=== PATIENT | male | born 1995 | race Two or more races ===

== ENCOUNTER 2022-04-21 20:03 | Emergency (ER) | payer OTHER ==
--- NOTE | 2022-04-21 21:32 | ED Physician Documentation ---
History of Present Illness - Stated complaint Stated Complaint: RASH - Chief complaint Chief Complaint: Allergic Rx - Additonal information Additional information: 26-year-old male presents emergency department for evaluation of a pruritic er ythematous rash that began on his right bicep but now includes portions of his left arm. He described it initially as very itchy and he thought it was dry so he applied Vaseline ointment. That did resolve the itchiness but the rash is spread to the left arm and today to the left face. He has no fevers. No history of similar. Uses vegan body wash. Review of Systems Constitutional: denies: Fever, Chills Nose: reports: Reviewed and negative Cardiac: reports: Reviewed and negative Respiratory: reports: Reviewed and negative GI: reports: Reviewed and negative Skin: reports: Rash PD PAST MEDICAL HISTORY - Present Medications Home Medications: Ambulatory Orders Medication Instructions Recorded Confirmed Triamcinolone 0.1% Oint [Kenalog 1 applic TOP BID #15 gm 04/21/22 0.1% Oint] - Allergies Allergies/Adverse Reactions: Allergies Allergy/AdvReac Type Severity Reaction Status Date / Time No Known Drug Allergies Allergy Verified 04/21/22 20:11 PD ED PE EXPANDED - General General: Alert, No acute distress - Cardiac Cardiac: Regular Rate. No: Murmur Present - Respiratory Respiratory: Clear to ausultation ben. No: Distress, Labored - Derm Derm: Rash (Dry scaling erythematous macular patchy rash on the right bicep, left forearm and left upper arm. Nonvesicular. No rash on palms of hands, soles of feet. No oral mucosal lesions) Results - Vitals Vitals: Vital Signs - 24 hr 04/21/22 20:06 Temperature 36.8 C Heart Rate 82 Respiratory 16 Rate Blood Pressure 119/74 O2 Saturation 98 Oxygen O2 Source Room air PD MEDICAL DECISION MAKING - ED course Complexity details: considered differential, d/w patient ED course: 26-year-old male presents emergency department for evaluation of a dry scaling pruritic macular rash on both his arms with some mild extension to his face. The rash is most consistent with an eczema. He did have some improvement using a Vaseline ointment but it has persisted despite use of this therefore we will start him on triamcinolone. This is not consistent with a cellulitis or a viral etiology Advised follow-up with [facility]. Emergent return precautions discussed Departure - Departure Disposition: Home, Self Care Clinical Impression: Eczema Qualifiers: Eczema type: unspecified Qualified Code(s): L30.9 - Dermatitis, unspecified Condition: Stable Record reviewed to determine appropriate education?: Yes Instructions: ED Dermatitis Atopic Eczema Prescriptions: Triamcinolone 0.1% Oint [Kenalog 0.1% Oint] 1 applic TOP BID #15 gm Comments: Shun I am not certain what the rashes on your arms though it is most consistent with an early eczema. Please use hypoallergenic soaps and laundry detergents. Please fill the prescription for the triamcinolone ointment and use it twice daily on your rash. Please schedule follow-up with [facility] [place]. If you are not having improvement in the rash despite use of the ointment they may want to make further recommendations such as changing the ointment or referring you to dermatology Your prescription has been sent electronically to the [facility] in [place]
[2022-04-21 21:36] VITALS: BP 120/72
== END 2022-04-21 21:35 | disposition home or self-care (01) ==
LOC: ED 20:03
DX: L30.9 Dermatitis, unspecified (principal)
CPT/HCPCS: 99282

== ENCOUNTER 2022-11-06 08:00 | Outpatient (CLI) | payer OTHER | END 2022-11-06 23:59 | disposition home or self-care (01) | LOC: LAB.N 08:00 | PROVIDERS: ATTEND Nurse Practitioner | DX: Z11.1 Encounter for screening for respiratory tuberculosis (principal) | CPT/HCPCS: 81599; 86480 ==

== ENCOUNTER 2024-05-12 16:45 | Outpatient (CLI) | payer OTHER ==
[2024-05-12 23:09] LABS: CHLAMYDIA TRACHOMATIS DNA NEGATIVE (NEGATIVE); NEISSERIA GONORRHOEAE DNA NEGATIVE (NEGATIVE); TRICHOMONAS VAGINALIS DNA NEGATIVE (NEGATIVE)
== END 2024-05-12 17:00 | disposition home or self-care (01) ==
LOC: LAB.N 16:45
PROVIDERS: ATTEND Physician Assistant Medical
DX: Z11.3 Encounter for screening for infections with a predominantly sexual mode of transmission (principal)
CPT/HCPCS: 36415; 86592; 86695; 86696; 86803; 87389; 87491; 87591; 87661